=== PATIENT | female | born 1950 | race Caucasian/White ===

== ENCOUNTER 2016-05-12 11:06 | Outpatient (CLI) | payer MEDICARE, OTHER | END 2016-05-12 11:07 | disposition home or self-care (01) | DX: M81.0 Age-related osteoporosis without current pathological fracture (principal); D25.9 Leiomyoma of uterus, unspecified; N95.0 Postmenopausal bleeding ==

== ENCOUNTER 2016-05-12 11:11 | Outpatient (CLI) | payer MEDICARE, OTHER | END 2016-05-12 11:12 | disposition home or self-care (01) | DX: Z12.31 Encounter for screening mammogram for malignant neoplasm of breast (principal) ==

== ENCOUNTER 2016-05-12 11:12 | Outpatient (CLI) | payer MEDICARE, OTHER | END 2016-05-12 11:13 | disposition home or self-care (01) | DX: M81.0 Age-related osteoporosis without current pathological fracture (principal); N95.8 Other specified menopausal and perimenopausal disorders ==

== ENCOUNTER 2018-01-24 11:23 | Outpatient (CLI) | payer MEDICARE ==
--- NOTE | 2018-01-25 12:02 | Mammography Report ---
Reason: BILAT SCREENwTOMO Procedure Date: 01/24/2018 Accession Number: [id number] / [id number] Procedure: NILE - Screening Mammo w/Flavio CPT Code: FULL RESULT: EXAM: Screening Mammo w/Flavio DATE: 01/24/2018 11:55 AM CLINICAL HISTORY: 67 year-old nulliparous female with family history of breast cancer in an aunt in her 70s. TECHNIQUE: Bilateral CC and MLO views were obtained. COMPARISON: 05/12/2016, 04/01/2015, 08/12/2014, 02/04/2014. FINDINGS: The breasts demonstrate heterogeneously dense fibroglandular parenchyma bilaterally. Typically benign coarse calcifications are seen in the right breast. No suspicious masses, clustered microcalcifications, or regions of architectural distortion are identified. IMPRESSION: Benign findings RECOMMENDATION: Routine annual screening unless otherwise clinically indicated. BIRADS CATEGORY 2: Benign findings STANDARD QUALIFYING STATEMENTS: 1. This examination was not reviewed with the aid of Computer-Aided Detection (CAD). 2. A negative or benign imaging report should not delay biopsy if clinically suspicious findings are present. Consider surgical consultation if warrented. More than 5% of cancers are not identified by imaging. 3. Dense breasts may obscure an underlying neoplasm. 4. This examination was reviewed with the aid of 3D breast imaging (tomosynthesis).
== END 2018-01-24 11:24 | disposition home or self-care (01) ==
LOC: DI 11:23
PROVIDERS: ATTEND Physician Assistant
DX: Z12.31 Encounter for screening mammogram for malignant neoplasm of breast (principal); Z80.3 Family history of malignant neoplasm of breast
CPT/HCPCS: 77063; 77067

== ENCOUNTER 2019-01-29 09:10 | Outpatient (CLI) | payer MEDICARE ==
--- NOTE | 2019-01-29 10:55 | XRAY Report ---
Reason: PAIN IN LEFT KNEE AND RIGHT HIP Procedure Date: 01/29/2019 Accession Number: [id number] / [id number] Procedure: XRS - Knee 3 View LT CPT Code: FULL RESULT: EXAM: LEFT KNEE RADIOGRAPHY EXAM DATE: 01/29/2019 09:31 AM. CLINICAL HISTORY: Pain in left knee and right hip. COMPARISON: None. TECHNIQUE: 3 views. FINDINGS: Bones: Normal. No fractures or bone lesions. Joints: Mild joint space narrowing without definite marginal osteophytosis in the medial weightbearing compartment. No joint effusion. No subluxation. Soft Tissues: Normal. No soft tissue swelling. IMPRESSION: Overall minimal degenerative changes. RADIA
--- NOTE | 2019-01-29 11:22 | XRAY Report ---
Reason: PAIN IN RIGHT HIP JOINT Procedure Date: 01/29/2019 Accession Number: [id number] / [id number] Procedure: XRS - Hip w/Pelvis 2-3V RT CPT Code: FULL RESULT: EXAM: RIGHT HIP RADIOGRAPHY EXAM DATE: 01/29/2019 09:31 AM. CLINICAL HISTORY: Pain in right hip joint. COMPARISON: None. TECHNIQUE: 2 views. FINDINGS: Bones: Normal. No fractures or bone lesion. Joints: Moderate right hip joint space narrowing with subchondral sclerosis and marginal osteophytosis. No subluxation. Similar but less pronounced degenerative changes also seen in the left hip. Soft Tissues: Normal. No soft tissue swelling. IMPRESSION: Degenerative disease. RADIA
== END 2019-01-29 09:11 | disposition home or self-care (01) ==
LOC: DI.S 09:10
PROVIDERS: ATTEND Physician Assistant
DX: M16.0 Bilateral primary osteoarthritis of hip (principal); M17.12 Unilateral primary osteoarthritis, left knee

== ENCOUNTER 2020-03-23 13:38 | Outpatient (CLI) | payer MEDICARE ==
--- NOTE | 2020-03-23 16:45 | DEXA Report ---
PROCEDURE: Dexa Spine and/or Hip INDICATIONS: OSTEOPOROSIS TECHNIQUE: Dual energy x-ray absorptiometry (DXA) was performed on a Xquva System. Regions measur ed are the AP Spine, femoral neck, and if needed forearm. COMPARISON: None. FINDINGS: Lumbar Spine: Bone Mineral Density 0.861 g/cm/cm,T score -2.7, mild osteoporosis Left Hip: Bone Mineral Density 0.755 g/cm/cm,T score -2.0moderate osteopenia Left Femoral Neck: Bone Mineral Density 0.721 g/cm/cm, T score -2.3, severe osteopenia (T score greater or equal to -1.0: NORMAL) (T score from -1.1 to -2.4: OSTEOPENIA) (T score less than or equal to -2.5 to: OSTEOPOROSIS) Impression: Osteoporosis within the lumbar spine. Patients with diagnosis of osteoporosis or osteopenia should have regular bone mineral density assess ment. For those eligible for Medicare, routine testing is allowed once every 2 years. Testing frequ ency can be increased for patients who have rapidly progressing disease or for those who are receivin g medical therapy to restore bone mass. Reviewed by: Agatha Olivera MD on 03/23/2020 4:44 PM PST Approved by: Agatha Olivera MD on 03/23/2020 4:44 PM PST Station ID: [id number]
== END 2020-03-23 13:39 | disposition home or self-care (01) ==
LOC: DI 13:38
PROVIDERS: ATTEND Registered Nurse
DX: M81.0 Age-related osteoporosis without current pathological fracture (principal)

== ENCOUNTER 2020-05-31 09:54 | Outpatient (CLI) | payer MEDICARE ==
--- NOTE | 2020-06-01 12:46 | Mammography Report ---
BILATERAL DIGITAL SCREENING MAMMOGRAM 3D/2D: 05/31/2020 CLINICAL: Routine screening. Routine screening. Comparison is made to exams dated: 01/24/2018 mammogram, 05/12/2016 mammogram, 04/01/2015 mammogram, and 08/12/2014 mammogram - [facility]. The tissue of both breasts is predominantly fatty. There is a focal asymmetry in the left breast at 10 o'clock anterior depth measuing 7 mm. No other significant masses, calcifications, or other findings are seen in either breast. IMPRESSION: INCOMPLETE: NEEDS ADDITIONAL IMAGING EVALUATION The focal asymmetry in the left breast is indeterminate. Additional views with possible ultrasound a re recommended. This exam was interpreted at Station ID: [id number]. NOTE: For mammograms, a report in lay terms will be sent to the patient. Approximately 15% of breast malignancies will not be visualized mammographically. In the management of a palpable breast mass, a negative mammogram must not discourage biopsy of a clinically suspicious lesion. Electronically Signed By: Luis Tenorio M.D. jr/:05/31/2020 12:02:06 ACR BI-RADS Category 0: Incomplete 3340F PARENCHYMAL PATTERN: (F) - The breast(s) demonstrate(s) diffuse fatty replacement. BI-RADS CATEGORY: (0) - 0 Mammo and [place] [id number] Immediate follow-up LATERALITY: (B)
== END 2020-05-31 09:55 | disposition home or self-care (01) ==
LOC: DI.S 09:54
PROVIDERS: ATTEND Registered Nurse
DX: Z12.31 Encounter for screening mammogram for malignant neoplasm of breast (principal); N64.89 Other specified disorders of breast

== ENCOUNTER 2020-07-07 11:52 | Outpatient (CLI) | payer MEDICARE ==
--- NOTE | 2020-07-14 14:04 | Mammography Report ---
UNILATERAL LEFT DIGITAL DIAGNOSTIC MAMMOGRAM 3D/2D: 07/07/2020 CLINICAL: Patient returns today to evaluate a focal asymmetry in the left breast. Comparison is made to exams dated: 05/31/2020 mammogram, 01/24/2018 mammogram, 05/12/2016 mammogram, 1 06/02/2014 mammogram, 08/12/2014 mammogram, and 02/04/2014 mammogram - [facility]. T he tissue of left breast is predominantly fatty. There is a stable focal asymmetry in the left breast at 10 o'clock anterior depth. No other significant masses or calcifications are seen in the breast. IMPRESSION: INCOMPLETE: NEEDS ADDITIONAL IMAGING EVALUATION The stable focal asymmetry in the left breast is indeterminate. An ultrasound is recommended. This exam was interpreted at Station ID: [id number]. NOTE: For mammograms, a report in lay terms will be sent to the patient. Approximately 15% of breast malignancies will not be visualized mammographically. In the management of a palpable breast mass, a negative mammogram must not discourage biopsy of a clinically suspicious lesion. Electronically Signed By: Luis Tenorio M.D., jr/dakota:07/07/2020 14:45:16 ACR BI-RADS Category 0: Incomplete 3340F PARENCHYMAL PATTERN: (F) - The breast(s) demonstrate(s) diffuse fatty replacement. BI-RADS CATEGORY: (0) - 0 Ultrasound [id number] Immediate follow-up LATERALITY: (B)
--- NOTE | 2020-07-14 14:04 | Ultrasound Report ---
LIMITED ULTRASOUND OF LEFT BREAST: 07/07/2020 CLINICAL: Patient returns today to evaluate a focal asymmetry in the left breast. Comparison is made to exams dated: 05/31/2020 mammogram, 01/24/2018 mammogram, 05/12/2016 mammogram, mammogram, 04/01/2015 mammogram, and 02/04/2014 mammogram - [facility]. Color flow ultrasound of the left breast 3 o'clock and 12 o'clock regions was performed. Yan scale images of the real-time examination were reviewed. There is a benign cyst in the left breast at 8 o'clock anterior depth accounting for the mammographic asymmetry. IMPRESSION: BENIGN There is no sonographic evidence of malignancy. Return to annual mammogram screening schedule is recommended. This exam was interpreted at Station ID: [id number]. Electronically Signed By: Luis Tenorio M.D. jr/:07/14/2020 13:47:29 Ultrasound BI-RADS: 2 Benign BI-RADS CATEGORY: (2) - 2 Mammogram [id number] return to screening LATERALITY: (B)
== END 2020-07-07 11:53 | disposition home or self-care (01) ==
LOC: DI 11:52
PROVIDERS: ATTEND Registered Nurse
DX: R92.2 Inconclusive mammogram (principal); N60.02 Solitary cyst of left breast

== ENCOUNTER 2021-05-08 01:37 | Observation (INO) | payer MEDICARE ==
[2021-05-08] MEDS ORDERED: diltiaZEM INJ 5 MG/ML VIAL IVP STA (01:54)
[2021-05-08] MEDS ORDERED: SODIUM CHLORIDE 0.9% 1,000 ML IV STA (01:54)
[2021-05-08] MEDS ORDERED: diltiaZEM CD 120 MG CAPSULE PO STA (02:06)
--- NOTE | 2021-05-08 02:11 | ED Physician Documentation ---
History of Present Illness - Stated complaint Stated Complaint: HIGH/IRREGULAR HR/PALPATATIONS - Chief complaint Chief Complaint: Cardiac - History obtained from History obtained from: Patient - Additonal information Additional information: Patient comes to the emergency department with chief complaint of palpitations. She states that she went to bed feeling normal last night, but woke up just before coming and feeling as though she "had a hummingbird loose in her chest". Patient states she is known to have atrial fibs/flutter, and had her first episode this last summer while in [place]. She was seen at a hospital there and admitted for a brief observation stay. She states that at that time, her heart rate responded very well to medication and that she was discharged and ended up following up with a information systems security officer in [place]. She had an echo and was told that it looked like she had been in atrial fibs/flutter for "a long time", due to the fact that she had some atrial enlargement. She was placed on anticoagulation and diltiazem at that time. The patient denies chest pain or shortness of breath. She states she is otherwise completely healthy and is not on any medications for anything else. She walks every day and gardens on a regular basis. She denies lightheadedness or dizziness currently. She did take her diltiazem this evening as usual. No other complaints at this time. Review of Systems Ten Systems: 10 systems reviewed and negative Constitutional: reports: Reviewed and negative Eyes: reports: Reviewed and negative Ears: reports: Reviewed and negative Nose: reports: Reviewed and negative Throat: reports: Reviewed and negative Cardiac: reports: Reviewed and negative Respiratory: reports: Reviewed and negative GI: reports: Reviewed and negative : reports: Reviewed and negative Skin: reports: Reviewed and negative Musculoskeletal: reports: Reviewed and negative Neurologic: reports: Reviewed and negative Psychiatric: reports: Reviewed and negative Endocrine: reports: Reviewed and negative Immunocompromised: reports: Reviewed and negative PD PAST MEDICAL HISTORY - Past Medical History Past Medical History: Yes Cardiovascular: Atrial fibrillation Respiratory: None Endocrine/Autoimmune: None GI: None : None HEENT: None Psych: None Musculoskeletal: Chronic back pain Derm: None - Past Surgical History Past Surgical History: Yes HEENT: Cataracts - Present Medications Home Medications: Ambulatory Orders Medication Instructions Recorded Confirmed Apixaban [Eliquis] 5 mg PO BID 05/08/21 05/08/21 Chlorthalidone 25 mg PO DAILY 05/08/21 05/08/21 dilTIAZem HCL [Diltiazem 24Hr ER 120 mg PO DAILY 05/08/21 05/08/21 (Xr)] - Allergies Allergies/Adverse Reactions: Allergies Allergy/AdvReac Type Severity Reaction Status Date / Time Penicillins Allergy Severe Rash Verified 04/17/13 09:00 amoxicillin Allergy Unknown Verified 05/08/21 01:50 - Social History Does the pt smoke?: No Smoking Status: Never smoker Does the pt drink ETOH?: Yes ETOH Use: Wine Does the pt have substance abuse?: No - Immunizations Immunizations are current?: Yes - POLST Patient has POLST: No PD ED PE NORMAL - Vitals Vital signs reviewed: Yes - General General: Alert and oriented X 3, No acute distress, Well developed/nourished, Other (The patient is well-appearing and converses without difficulty.) - HEENT HEENT: Atraumatic, PERRL, EOMI, Moist mucous membranes - Neck Neck: Supple, no meningeal sign - Cardiac Cardiac: No murmur, Other (Irregular rhythm and rate, markedly tachycardic) - Respiratory Respiratory: No respiratory distress, Clear bilaterally - Abdomen Abdomen: Soft, Non tender, Non distended - Derm Derm: Normal color, Warm and dry, No rash - Extremities Extremities: No deformity, No edema, No calf tenderness / cord - Neuro Neuro: Alert and oriented X 3, behavioral geneticist 2-12 intact, Normal speech, Other (Grossly intact) - Psych Psych: Normal mood, Normal affect Results - Vitals Vitals: Vital Signs - 24 hr 05/08/21 05/08/21 05/08/21 01:40 02:00 02:05 Temperature 36.1 C L Heart Rate 145 H 148 H 78 Respiratory 13 20 20 Rate Blood Pressure 178/121 H 147/118 H 140/78 H O2 Saturation 98 98 99 05/08/21 05/08/21 02:10 02:30 Temperature Heart Rate 87 67 Respiratory 16 13 Rate Blood Pressure 149/89 H 157/90 H O2 Saturation 97 99 Oxygen O2 Source Room air - EKG (time done) 0144 Rate: Rate (enter#) (136) Rhythm: Atrial fibrillation [place]: Normal QRS: LVH Ischemia: ST depression, Non specific changes Compare to prior EKG: Old EKG unavailable Computer interpretation: Agree with computer - Labs Labs: Laboratory Tests 05/08/21 05/08/21 05/08/21 01:57 01:57 01:57 WBC 8.1 RBC 4.40 Hgb 14.0 Hct 38.4 MCV 87.3 MCH 31.8 H MCHC 36.5 H RDW 12.1 Plt Count 349 MPV 9.9 Neut # (Auto) 4.5 Lymph # (Auto) 2.4 [place] # (Auto) 0.9 Eos # (Auto) 0.2 Baso # (Auto) 0.1 Absolute Nucleated RBC 0.00 Nucleated RBC % 0.0 Sodium 130 L Potassium 2.6 L Chloride 89 L Carbon Dioxide 27 Anion Gap 14.0 H BUN 26 H Creatinine 0.7 Estimated GFR (MDRD) 83 L Glucose 99 Calcium 9.7 Total Bilirubin 1.0 AST 29 ALT 32 Alkaline Phosphatase 102 Troponin I High Sens 15.7 H* Total Protein 7.9 Albumin 4.9 Globulin 3.0 Albumin/Globulin Ratio 1.6 Lipase 56 H PD MEDICAL DECISION MAKING - ED course Complexity details: reviewed results, re-evaluated patient, considered differential, d/w patient ED course: The patient was very well-appearing, but her heart rate was ranging between the 130s and 160s. IV was placed and patient was started on IV fluid and given an immediate bolus of Cardizem 25 mg IV. She responded within less than a minute with heart rate dropping to the 80s, though the patient was still in atrial fibrillation. Patient reported feeling much better with the heart rate drop. The patient was found to have significant hypokalemia at 2.6, and I suspected this was the result of her taking chlorthalidone. The patient had eventually converted back to normal sinus rhythm after the A. fib, but was still having frequent PACs. She was given 40 mEq of potassium orally for her hypokalemia. I felt that she should have more aggressive potassium replacement and since she would need frequent repeat potassium levels, I felt she should be admitted for observation. I spoke with Dr. Espino, who agreed to meet patient to her service. - Critical Care Time(min): 30 Comments: Critical care time was necessary, secondary to hypermobility of imminent and life-threatening decline, secondary to extreme tachycardia in the setting of atrial fibrillation with rapid ventricular response, complicated by severe hypokalemia. Time Includes: Direct patient care, Review records, Reassess patient, Document care, Coordinate care, Medical consult, See progress note Data interpretation: Labs, Pulse ox, Cardiac output, See progress note Departure - Departure Disposition: ED Place in Observation Clinical Impression: Hypokalemia, Atrial fibrillation with RVR Condition: Serious Discharge Date/Time: 05/08/21 03:55
[2021-05-08 02:12] LABS: BASOPHILS # (AUTO) 0.1 10^3/uL (0.0-0.1); BASOPHILS % (AUTO) 0.7 %; EOSINOPHILS # (AUTO) 0.2 10^3/uL (0.0-0.7); EOSINOPHILS % (AUTO) 1.9 %; HCT - HEMATOCRIT 38.4 % (37.0-47.0); LYMPHOCYTES # (AUTO) 2.4 10^3/uL (1.5-3.5); LYMPHOCYTES % (AUTO) 30.1 %; MEAN CORPUSCULAR HEMOGLOBIN 31.8 pg (27.0-31.0); MEAN CORPUSCULAR HGB CONC 36.5 g/dL (32.0-36.0); MEAN CORPUSCULAR VOLUME 87.3 fL (81.0-99.0); MEAN PLATELET VOLUME 9.9 fL (7.9-10.8); MONOCYTES # (AUTO) 0.9 10^3/uL (0.0-1.0); MONOCYTES % (AUTO) 11.6 %; NEUTROPHILS # (AUTO) 4.5 10^3/uL (1.5-6.6); NEUTROPHILS % (AUTO) 55.6 %; PLT - PLATELET COUNT 349 10^3/uL (130-450); RED CELL DISTRIBUTION WIDTH 12.1 % (12.0-15.0); WHITE BLOOD COUNT 8.1 x10^3/uL (4.8-10.8)
[2021-05-08 02:25] LABS: ALBUMIN 4.9 g/dL (3.2-5.5); ALBUMIN/GLOBULIN RATIO 1.6 (1.0-2.2); CALCIUM 9.7 mg/dL (8.5-10.3); CREATININE 0.7 mg/dL (0.4-1.0); POTASSIUM 2.6 mmol/L (3.5-5.0); TOTAL PROTEIN 7.9 g/dL (6.7-8.2)
[2021-05-08] MEDS ORDERED: POTASSIUM CHLORIDE 20 MEQ TABLET PO STA (02:36)
[2021-05-08] MEDS ORDERED: ONDANSETRON 4 MG/2 ML VIAL IVP PRN (02:56)
[2021-05-08] MEDS ORDERED: oxyCODONE 5 MG TABLET PO PRN (02:56)
[2021-05-08] MEDS ORDERED: ACETAMINOPHEN 325 MG TABLET PO PRN (02:56)
[2021-05-08] MEDS ORDERED: SODIUM CHLORIDE FLUSH 0.9% 10 ML SYRINGE IVP PRN (02:56)
[2021-05-08] MEDS ORDERED: ONDANSETRON ODT 4 MG TABLET TL PRN (02:56)
--- NOTE | 2021-05-08 03:02 | HISTORY & PHYSICAL EXAMINATION ---
Chief Complaint - Chief Complaint Chief Complaint: palpitations History of Present Illness - Admitted From Admitted From:: home - History Obtained From Records Reviewed: [facility] History obtained from: Dr. Calixto Exam Limitations: none - History of Present Illness HPI Comment/Other: She has a history of atrial fibrillation for which she was hospitalized for [place] the past [place]. With that hospitalization she was put on rate control and anticoagulation and was told that she had probably been in atrial fibrillati on for quite some time based on echocardiogram findings. She is compliant with her medications. She is on chlorthalidone for high blood pressure. Her Equities Analyst from [facility], Dr Zamudio, wants her systolic to be below 120. She did have her K checked by her PCP Alma Amaya with her last visit and it was low. She was instructed to eat potassium rich food to take care of that. She now presents with palpitations. She was asleep in bed when she was awoken by sensation of the palpitations. She was found to be in atrial fibrillation with rapid ventricular response at a rate of 145. No chest pain, shortness of breath, edema. She was afebrile, normotensive. She was given 1 dose of diltiazem IV and slow down and converted to sinus rhythm. However potassium was 2.6, sodium is 130. Troponin 15.7. She is now placed in observation for potassium of less than 3 mEq/L with findings of arrhythmia/cardiac conduction disturbance. History - Past Medical History Cardiovascular: reports: Atrial fibrillation Respiratory: reports: None Neuro: reports: None Endocrine/Autoimmune: reports: None GI: reports: None SLIP LASTER: reports: Other (abormal mammo, ) : reports: None HEENT: reports: None Psych: reports: None Musculoskeletal: reports: Osteoporosis, Chronic back pain Derm: reports: None MRSA Hx?: No - Past Surgical History HEENT: reports: Cataracts - Family & Social History Family History Comment/Other: Mom age 87 of old age. Dad age 70 of emphysema from smoking. 1 brother healthy. many cousins on both sides w afib. no children Living arrangement: At home Living Situation: With spouse/s.o. Social [place] and she and her own their own home. Nonsmoker. Wine was 1 glass daily until a few months ago and is now one glass once every 2 weeks. No recreational substance abuse. - Substance History Use: Uses substance without health or social issues: Alcohol Abuse: Recurrent use of substance despite neg consequences: NONE Dependence: Experiences withdrawal or developed tolerances: NONE - POLST Patient has POLST: No POLST Status: Full Code Meds/Allgy - Home Medications Home Medications: Ambulatory Orders Medication Instructions Recorded Confirmed Apixaban [Eliquis] 5 mg PO BID 05/08/21 05/08/21 Chlorthalidone 25 mg PO DAILY 05/08/21 05/08/21 dilTIAZem HCL [Diltiazem 24Hr ER 120 mg PO DAILY 05/08/21 05/08/21 (Xr)] - Allergies Allergies/Adverse Reactions: Allergies Allergy/AdvReac Type Severity Reaction Status Date / Time Penicillins Allergy Severe Rash Verified 04/17/13 09:00 amoxicillin Allergy Unknown Verified 05/08/21 01:50 Review of Systems - Constitutional Constitutional: denies: Fatigue, Fever, Chills, Malaise, Weakness, Poor appetite - Eyes Eyes: denies: Pain, Irritation, Amaurosis, Blurred vision, Vision loss - Ears, Nose & Throat Ears, Nose & Throat: denies: Hearing loss, Hearing aids, Postnasal drainage, Sore throat, Hoarseness - Cardiovascular Cariovascular: reports: Irregular heart rate, Palpitations. denies: Chest pain, Edema, Lightheadedness, Syncope, Exertional dyspnea, Decr. exercise tolerance - Respiratory Respiratory: denies: Cough, Sputum production, Wheezing, Snoring, SOB at rest, SOB with exertion - Gastrointestinal Gastrointestinal: denies: Abdominal pain, Abdominal distention, Constipation, Diarrhea, Change in bowel habits - Genitourinary Genitourinary: denies: Dysuria, Frequency, Urgency, Hematuria - Musculoskeletal Musculoskeletal: denies: Muscle pain, Muscle aches, Joint pain - Integumentary Integumentary: denies: Rash, Nail changes - Neurological Neurological: denies: General weakness, Focal weakness, Headache, Dizziness, Memory problems, Pre-existing deficit - Psychiatric Psychiatric: denies: Depression, Anxiety, Suicidal - Endocrine Endocrine: denies: Polyuria, Polydypsia - Hematologic/Lymphatic Hematologic/Lymphatic: denies: Anemia, Bruising, Petechiae Prior Level of Functionality: complete independence w ADLs. 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 Exam - Vital Signs Reviewed Vital Signs: Yes Vital Signs: Vital Signs x48h Temp Pulse Resp BP Pulse Ox 05/08/21 02:30 67 13 157/90 H 99 05/08/21 02:10 87 16 149/89 H 97 05/08/21 02:05 78 20 140/78 H 99 05/08/21 02:00 148 H 20 147/118 H 98 05/08/21 01:40 36.1 C L 145 H 13 178/121 H 98 - Physical Exam General Appearance: positive: No acute distress, Alert, Other (thin white female, comfortable, lucid, normal speech) Eyes Bilateral: positive: PERRL, EOMI ENT: positive: Pharynx nml, No signs of dehydration Neck: positive: No JVD. negative: Stiff neck Respiratory: positive: No respiratory distress. negative: Wheezes, Rales, Rhonchi Cardiovascular: positive: Regular rate & rhythm. negative: Systolic murmur, Gallop/S4, Friction rub Peripheral Pulses: positive: 1+ Abdomen: positive: Non-tender, No organomegaly, Nml bowel sounds, No distention Skin: positive: Warm, Dry Extremities: positive: Full ROM, No pedal edema Neurologic/Psychiatric: positive: Oriented x3, CN's nml (2-12), Motor nml Conclusion/Plan - Problem List (1) Hypokalemia Conclusion/Plan: Milliman criteria states the patient can be placed in observation for potassium less than 2.5 in and of itself, or potassium less than 3 associated with arrhythmia or cardiac conduction disturbance. She meets criteria for the latter. Troponin is essentially negative. She has had an excellent cardiac work-up in the outpatient setting and already has established cardiac care. Plan: Observation status Potassium supplementation IV at 10 mEq an hour to get above 3.0. At that point she will be transition to oral and discharged to home. Once home, she will receive a few days of oral K by Rx and will followup with her PCP, Alma Amaya. I let her know that eating 7.5 bananas a day will give you the recommended dose of 3500 mg of K. One potato is 515-900 mg depending on the size, watermelon is 640 mg, 1 cup of spinach is 558 mg. (2) Atrial fibrillation with RVR Conclusion/Plan: On presentation. Now resolved and in sinus rhythm. Patient has a known, documented history. She will be resumed on her Cardizem CD and her Eliquis. (3) Hypertension Conclusion/Plan: we discussed options: 1. continuing chlorthalidone and adding oral potassium 2. Increasing the diltiazem since her BP can take it 3. going with a new BP med. She opted for #2. Qualifiers: Hypertension type: primary hypertension Qualified Code(s): I10 - Essential (primary) hypertension - Lab Results Lab results reviewed: Yes Jaciel Bones: 05/08/21 01:57 05/08/21 01:57 - Diagnostic Imaging Results Diagnostic Imaging Results Comments: no acute lung disease in the chest - EKG Results EKG Interpreted Independently: No EKG Comparison: No prior EKG Core Measures - Anticipated LOS I expect patient to be DC'd or transferred within 96 hours.: Yes - DVT/VTE - Prophylaxis VTE/DVT Device ordered at admit?: Yes
[2021-05-08] MEDS: POTASSIUM CHLOR 10 MEQ/100 ML 10 MEQ/100 ML BAG IV SCH ×5 (03:53→11:10)
[2021-05-08 04:44] LABS: B. PARAPERTUSSIS- RESP PCR PAN NOT DETECTED; B. PERTUSSIS- RESP PCR PANEL NOT DETECTED; C. PNEUMONIAE- RESP PCR PANEL NOT DETECTED; CORONAVIRUS 229E-RESP PCR NOT DETECTED; CORONAVIRUS HKU1-RESP PCR NOT DETECTED; CORONAVIRUS NL63-RESP PCR NOT DETECTED; CORONAVIRUS OC43-RESP PCR NOT DETECTED; HUMAN METAPNEUMOVIRUS NOT DETECTED; INFLUENZA A- RESP PCR PANEL NOT DETECTED; INFLUENZA B - RESP PCR PANEL NOT DETECTED; M. PNEUMONIAE- RESP PCR PANEL NOT DETECTED; PARAINFLUENZA VIRUS 1 NOT DETECTED; PARAINFLUENZA VIRUS 2 NOT DETECTED; PARAINFLUENZA VIRUS 3 NOT DETECTED; PARAINFLUENZA VIRUS 4 NOT DETECTED; RHINOVIRUS/ENTEROVIRUS NOT DETECTED; RSV- RESP PCR PANEL NOT DETECTED; SARS-CoV-2 -RESP PCR PANEL NOT DETECTED
--- NOTE | 2021-05-08 07:47 | Discharge Plan ---
Discharge Plan Problem Reviewed?: Yes Diet: Regular Activity Restrictions: Activity as Tolerated Shower Restrictions: No Driving Restrictions: No No Smoking: If you smoke, Please STOP! Call for help. Disposition: Home, Self Care Condition: Stable Prescriptions: diltiaZEM CD [Cardizem Cd] 180 mg PO DAILY #30 cap Potassium Chloride 20 meq PO RTDAILY #10 tablet Health Concerns: You were placed in observation because your potassium was so low that it induced an episode of atrial fibrillation with a rapid heart rate. It woke you up from your sleep. You had a history of low potassium and your primary care provider asked you to eat a potassium rich diet. A potassium rich diet would be 7-1/2 bananas a day to give you enough potassium as 1 pill. Beats have 518 mg, spinach has 558 mg, watermelon has 640 mg, and potatoes have 610 mg. A daily requirement of potassium is about 4700 mg. It depends on what medicines you are on, and how your kidneys are functioning. You converted to a regular heart rate with a dose of diltiazem in the emergency room. And we placed you in observation to give you IV potassium supplementation since you were 2.6. You are now above 3.0 and we will be sending you home on potassium 20 mEq a day. Only for 5 days. We have stopped the chlorthalidone the causes low potassium. In an effort to reach the goal that your pewter finisher to set for you with a systolic blood pressure of less than 120, we have increased your diltiazem from 120 mg a day to 180 mg a day. We also noted that your troponin was elevated which can occur from stress on the heart due to high heart rate. We spoke with the pewter finisher on-call at the [facility] and they felt it was reasonable to send you home and free to follow-up with Dr. Bajwa for an outpatient stress test. Plan of Treatment: Please see your primary care provider in follow-up in the next week. They will need to check your potassium. You will be sent home on 1 tablet a day that can be dissolved in liquid. Take it for 5 days. Your primary care provider will also need to check your blood pressure since we have increased your Cardizem. Please contact Dr. Bajwa's office tomorrow to schedule an appointment for follow-up so that you can have a stress test done. Assessment: Patient understands plan and will follow through Additional Instructions or Follow Up instructions: Please return to the emergency department if you develop any chest pain, difficulty breathing, or palpitations Follow-up with: MIR KENDALL ARNP [Primary Care Provider] - Wes Bajwa MD [Provider Admit Priv/Credential] -
--- NOTE | 2021-05-08 08:14 | XRAY Report ---
PROCEDURE: Chest 1 View X-Ray INDICATIONS: Chest pain TECHNIQUE: One view of the chest was acquired. COMPARISON: None FINDINGS: Surgical changes and devices: None. Lungs and pleura: No pleural effusions or pneumothorax. Lungs are clear. Mediastinum: Mediastinal contours appear normal. Heart size is normal. Bones and chest wall: No suspicious bony lesions. Overlying soft tissues appear unremarkable. IMPRESSION: Portable chest within normal limits for age. Note: No significant discrepancy from the preliminary report. Reviewed by: Ti Mccloud MD on 05/08/2021 7:13 AM [facility] [[email or web address]] Approved by: Ti Mccloud MD on 05/08/2021 7:13 AM [facility] [[email or web address]] Station ID: [id number]
--- NOTE | 2021-05-08 08:36 | PHARMACY PROGRESS NOTE ---
- Best Possible Medication History Admit Date and Time: 05/08/21 0256 Processed by: Nursing Medication History completed: Yes Patient Interview: Completed Secondary Source(s): Pharmacy records, Insurance records As the person ultimately responsible for medication therapy, providers are able to order a medication from an existing home medication list in [facility] via the "Reconcile Routine" prior to Confirmation of that medication by service support representative. Such practice is discouraged except when the physician, in their clinical judgment, deems that a medical need exists for a medication without regard to previous use.
[2021-05-08] MEDS ORDERED: SODIUM CHLORIDE FLUSH 0.9% 10 ML SYRINGE IVP SCH (09:00)
[2021-05-08] MEDS ORDERED: diltiaZEM CD 120 MG CAPSULE PO SCH (09:00)
[2021-05-08] MEDS ORDERED: diltiaZEM CD 180 MG CAPSULE PO SCH (09:00)
[2021-05-08] MEDS ORDERED: APIXABAN 5 MG TABLET PO SCH (09:00)
[2021-05-08] MEDS ORDERED: ASPIRIN CHEW 81 MG TABLET PO STA (09:22)
[2021-05-08 09:48] VITALS: BP 146/75
[2021-05-08] MEDS ORDERED: ENOXAPARIN 60 MG/0.6 ML SYRINGE SUBQ SCH (10:00)
[2021-05-08 11:04] LABS: BASOPHILS % (AUTO) 0.7 %; EOSINOPHILS # (AUTO) 0.1 10^3/uL (0.0-0.7); EOSINOPHILS % (AUTO) 1.1 %; HCT - HEMATOCRIT 35.5 % (37.0-47.0); HGB - HEMOGLOBIN 13.1 g/dL (12.0-16.0); LYMPHOCYTES # (AUTO) 1.2 10^3/uL (1.5-3.5); MEAN CORPUSCULAR HEMOGLOBIN 32.3 pg (27.0-31.0); MEAN CORPUSCULAR HGB CONC 36.9 g/dL (32.0-36.0); MEAN CORPUSCULAR VOLUME 87.7 fL (81.0-99.0); MEAN PLATELET VOLUME 9.4 fL (7.9-10.8); MONOCYTES # (AUTO) 0.7 10^3/uL (0.0-1.0); MONOCYTES % (AUTO) 11.9 %; NEUTROPHILS # (AUTO) 3.6 10^3/uL (1.5-6.6); NEUTROPHILS % (AUTO) 64.1 %; PLT - PLATELET COUNT 341 10^3/uL (130-450); RED BLOOD COUNT 4.05 10^6/uL (4.20-5.40); RED CELL DISTRIBUTION WIDTH 12.2 % (12.0-15.0); WHITE BLOOD COUNT 5.6 x10^3/uL (4.8-10.8)
[2021-05-08 11:13] LABS: CALCIUM 9.3 mg/dL (8.5-10.3); CREATININE 0.7 mg/dL (0.4-1.0); POTASSIUM 3.5 mmol/L (3.5-5.0)
--- NOTE | 2021-05-08 21:04 | DISCHARGE SUMMARY ---
"Discharge Summary Admit Date: 05/08/21 Discharge Date: 05/08/21 Discharging Provider: Tamara Espino MD Primary Care Provider: JUANITO Carolina Code Status: Attempt Resuscitation Condition at Discharge: Stable Discharge Disposition: 01 Home, Self Care - DIAGNOSES Discharge Diagnoses with Status of Each Condition: 1. Hypokalemia 2. Atrial fibrillation with RVR 3. Hypertension 4. Medication side effect - HPI History of Present Illness: She has a history of atrial fibrillation for which she was [place] the [place]. With that hospitalization she was put on rate control and anticoagulation and was told that she had probably been in atrial fibrillation for quite some time based on echocardiogram findings. She is compliant with her medications. She is on chlorthalidone for high blood pressure. Her [employer] Principal from [facility], Dr Zamudio, wants her systolic to be below 120. She did have her K checked by her PCP Alma Amaya with her last visit and it was low. She was instructed to eat potassium rich food to take care of that. She now presents with palpitations. She was asleep in bed when she was awoken by sensation of the palpitations. She was found to be in atrial fibrillation with rapid ventricular response at a rate of 145. No chest pain, shortness of breath, edema. She was afebrile, normotensive. She was given 1 dose of diltiazem IV and slow down and converted to sinus rhythm. However potassium was 2.6, sodium is 130. Troponin 15.7. She is now placed in observation for potassium of less than 3 mEq/L with findings of arrhythmia/cardiac conduction disturbance. 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 And then given an oral dose. Potassium was 3.5 on recheck. She explained that her occupational therapy co director is started her on chlorthalidone to get her systolic below 130. We discussed options to achieve that goal without the chlorthalidone. She opted to increase her current Cardizem dose. She will be sent home on 5 days of p.o. potassium. She will need to see her primary care provider or occupational therapy co director in follow-up to get a BMP, and a check of her heart rate and blood pressure on the new Cardizem dose. Troponins were elevated on second set. The daytime hospitalist was able to speak to the occupational therapy co director and will dictate a separate addendum with his conversation about the occupational therapy co director instruction. At discharge temperature was 36.5. Pulse was 69 and sinus rhythm. Blood pressure 146/75. Respirations 16. 99% on room air. She is 5 foot 9 inches tall and was 59.5 kg. An alert, oriented white female who looks stated age. Neck is supple, no JVD Lungs are clear to auscultation and percussion without any increased respiratory effort Regular rate and rhythm Abdomen is soft and nontender with normal bowel sounds and no masses Extremities without edema Speech is lucid, she is oriented to person place and time, follows all commands, and is ambulating without assistance Discharged in stable condition to follow-up with primary care provider and occupational therapy co director. - ALLERGIES Allergies/Adverse Reactions: Allergies Allergy/AdvReac Type Severity Reaction Status Date / Time Penicillins Allergy Severe Rash Verified 04/17/13 09:00 amoxicillin Allergy Unknown Verified 05/08/21 01:50 - MEDICATIONS Home Medications: Ambulatory Orders Medication Instructions Recorded Confirmed Apixaban [Eliquis] 5 mg PO BID 05/08/21 05/08/21 Potassium Chloride 20 meq PO RTDAILY #10 tablet 05/08/21 diltiaZEM CD [Cardizem Cd] 180 mg PO DAILY #30 cap 05/08/21 - LABS Result Diagrams: 05/08/21 10:55 05/08/21 10:55"
== END 2021-05-08 15:00 | disposition home or self-care (01) ==
LOC: ED 01:37 → MS2 02:56
PROVIDERS: ADMIT Specialist; ATTEND Internal Medicine
DX: E87.6 Hypokalemia (principal); I48.91 Unspecified atrial fibrillation; I10 Essential (primary) hypertension; Z79.01 Long term (current) use of anticoagulants; T50.2X5A Adverse effect of carbonic-anhydrase inhibitors, benzothiadiazides and other diuretics, initial encounter; Z20.822 Contact with and (suspected) exposure to COVID-19
CPT/HCPCS: 36415; 71045; 80048; 80053; 83690; 83735; 83880; 84132; 84443; 84484; 85025; 87631; 93005; 96361; 96365; 96366; 96372; 96375; 99285; 99291; A9270; G0378; J1650; 0202U

== ENCOUNTER 2021-05-18 11:22 | Outpatient (CLI) | payer MEDICARE ==
--- NOTE | 2021-05-18 13:27 | XRAY Report ---
PROCEDURE: Hip w/Pelvis 2-3V RT INDICATIONS: PAIN IN RT HIP TECHNIQUE: AP pelvis with lateral view(s) of the right hip(s). COMPARISON: Right hip x-rays 01/29/2019. FINDINGS: Bones: No fractures or dislocations. Pelvic ring appears intact. No suspicious bony lesions. Moder ate to severe right hip joint space narrowing, progressed compared to 2019. Possible cam deformity of the right femoral neck. Mild to moderate left hip joint space narrowing. Soft tissues: The visualized bowel gas pattern is normal. No suspicious soft tissue calcifications. 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 Possible cam deformity. Progressed compared to 2019. Reviewed by: Mateo Lau MD on 05/18/2021 1:26 PM PST Approved by: Mateo Lau MD on 05/18/2021 1:26 PM PST Station ID: [id number]
[2021-05-18 16:54] LABS: CALCIUM 9.4 mg/dL (8.5-10.3); CREATININE 0.8 mg/dL (0.4-1.0); POTASSIUM 3.9 mmol/L (3.5-5.0)
== END 2021-05-18 11:23 | disposition home or self-care (01) ==
LOC: DI.S 11:22
PROVIDERS: ATTEND Nurse Practitioner Family
DX: M16.11 Unilateral primary osteoarthritis, right hip (principal); E87.6 Hypokalemia; M81.0 Age-related osteoporosis without current pathological fracture
CPT/HCPCS: 36415; 80048; 82306

== ENCOUNTER 2021-07-11 00:55 | Emergency (ER) | payer MEDICARE ==
[2021-07-11 01:20] LABS: BASOPHILS # (AUTO) 0.1 10^3/uL (0.0-0.1); BASOPHILS % (AUTO) 0.8 %; EOSINOPHILS # (AUTO) 0.1 10^3/uL (0.0-0.7); EOSINOPHILS % (AUTO) 1.5 %; HCT - HEMATOCRIT 42.9 % (37.0-47.0); HGB - HEMOGLOBIN 15.1 g/dL (12.0-16.0); LYMPHOCYTES # (AUTO) 2.7 10^3/uL (1.5-3.5); LYMPHOCYTES % (AUTO) 34.6 %; MEAN CORPUSCULAR HEMOGLOBIN 31.4 pg (27.0-31.0); MEAN CORPUSCULAR HGB CONC 35.2 g/dL (32.0-36.0); MEAN CORPUSCULAR VOLUME 89.2 fL (81.0-99.0); MEAN PLATELET VOLUME 9.7 fL (7.9-10.8); MONOCYTES # (AUTO) 0.7 10^3/uL (0.0-1.0); MONOCYTES % (AUTO) 8.5 %; NEUTROPHILS # (AUTO) 4.2 10^3/uL (1.5-6.6); NEUTROPHILS % (AUTO) 54.5 %; PLT - PLATELET COUNT 337 10^3/uL (130-450); RED BLOOD COUNT 4.81 10^6/uL (4.20-5.40); RED CELL DISTRIBUTION WIDTH 12.4 % (12.0-15.0); WHITE BLOOD COUNT 7.8 x10^3/uL (4.8-10.8)
--- NOTE | 2021-07-11 01:20 | ED Physician Documentation ---
History of Present Illness - Stated complaint Stated Complaint: RAPID HEART RATE - Chief complaint Chief Complaint: Cardiac - History obtained from History obtained from: Patient - Additonal information Additional information: Patient is 70-year-old female presenting to the emergency department with chief complaint of rapid heart rate. Reports woke at approximately 1130 with the sensation of "hummingbird's in my chest". Has had similar sensations in the past associated with episodes of atrial fibrillation. Known history of A. fib for which she takes Cardizem and Eliquis. Last dose Eliquis was earlier this evening. Last p.o. intake was earlier this evening. Also reports history of chronic Hypokalemia and states that she did take some fruit orally in order to try to replete her potassium prior to arrival. Otherwise denies for any lightheadedness, dizziness, chest pain, shortness of breath, abdominal pain, nausea, vomiting, diarrhea, constipation. 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 HEENT: None Psych: None Musculoskeletal: Osteoarthritis, Osteoporosis, Chronic back pain Derm: None - Past Surgical History Past Surgical History: Yes HEENT: Cataracts - Present Medications Home Medications: Ambulatory Orders Medication Instructions Recorded Confirmed Apixaban [Eliquis] 5 mg PO BID 05/08/21 07/11/21 Potassium Chloride 20 meq PO RTDAILY #10 tablet 05/08/21 07/11/21 diltiaZEM CD [Cardizem Cd] 180 mg PO DAILY #30 cap 05/08/21 07/11/21 - Allergies Allergies/Adverse Reactions: Allergies Allergy/AdvReac Type Severity Reaction Status Date / Time Penicillins Allergy Severe Rash Verified 07/11/21 01:10 amoxicillin Allergy Unknown Verified 07/11/21 01:10 - Social History Does the pt smoke?: No Smoking Status: Never smoker Does the pt drink ETOH?: Yes Does the pt have substance abuse?: No - Immunizations Immunizations are current?: Yes - POLST Patient has POLST: No POLST Status: Full Code PD ED PE NORMAL - Vitals Vital signs reviewed: Yes - General General: Alert and oriented X 3 - HEENT HEENT: Atraumatic - Neck Neck: Supple, no meningeal sign - Cardiac Cardiac: Other (Tachycardic irregularly irregular rhythm) - Respiratory Respiratory: No respiratory distress, Clear bilaterally - Abdomen Abdomen: Normal bowel sounds, Soft - Female Female : Deferred - Rectal Rectal: Deferred - Derm Derm: Normal color Results - Vitals Vitals: Vital Signs - 24 hr 07/11/21 07/11/21 07/11/21 01:01 01:25 01:26 Temperature 36.9 C Heart Rate 157 H 121 H 115 H Respiratory 19 19 15 Rate Blood Pressure 175/115 H 159/138 H 155/91 H O2 Saturation 98 98 97 07/11/21 07/11/21 07/11/21 01:31 01:36 01:43 Temperature Heart Rate 77 75 74 Respiratory 17 17 17 Rate Blood Pressure 157/87 H 149/86 H 148/80 H O2 Saturation 98 98 98 Oxygen O2 Source Room air - EKG (time done) 0104 Rate: Rate (enter#) (152) Rhythm: Atrial fibrillation [place]: Normal Intervals: QRS normal. No: Prolonged QT QRS: Normal Ischemia: Normal ST segments, Non specific changes Compare to prior EKG: Unchanged from prior EKG Computer interpretation: Agree with computer 0143 Rate: Rate (enter#) (76) Rhythm: NSR [place]: Normal Intervals: Normal [place], QRS normal. No: Prolonged QT QRS: Normal Ischemia: Normal ST segments Compare to prior EKG: Changed from prior EKG (Sinus rhythm has replaced atrial fibrillation), Other - Labs Labs: Laboratory Tests 07/11/21 07/11/21 01:10 01:10 WBC 7.8 RBC 4.81 Hgb 15.1 Hct 42.9 MCV 89.2 MCH 31.4 H MCHC 35.2 RDW 12.4 Plt Count 337 MPV 9.7 Neut # (Auto) 4.2 Lymph # (Auto) 2.7 [place] # (Auto) 0.7 Eos # (Auto) 0.1 Baso # (Auto) 0.1 Absolute Nucleated RBC 0.00 Nucleated RBC % 0.0 Sodium 137 Potassium 3.8 Chloride 96 L Carbon Dioxide 29 Anion Gap 12.0 BUN 22 H Creatinine 0.8 Estimated GFR (MDRD) 71 L Glucose 118 H Calcium 10.0 Total Bilirubin 0.8 AST 38 ALT 37 Alkaline Phosphatase 112 Total Protein 8.4 H Albumin 4.8 Globulin 3.6 Albumin/Globulin Ratio 1.3 Lipase 48 PD MEDICAL DECISION MAKING - ED course Complexity details: reviewed results, d/w patient ED course: Patient is a 70-year-old female presenting to the emergency department with rapid heart rate in setting of known history of atrial fibrillation. Known history of A. fib, currently takes Cardizem and Eliquis at home. Also no history of recurrent episodes hypokalemia. She reports that she takes potassium rich foods at home in order to treat this and is no longer on an oral potassium supplement. Initial EKG on arrival to the emergency department demonstrated A. fib with rapid ventricular response. Comprehensive labs obtained demonstrated normal electrolytes. Minimal elevation in high-sensitivity troponin at 15.8. No chest pain reported. Patient given 10 mg Cardizem with almost immediate conversion back to sinus rhythm. Monitored in the emergency department. She denied any chest pain, shortness of breath or other symptoms that would be concerning for acute cardiac ischemia and nothing in her repeat EKG was highly concerning for acute cardiac ischemia. At this time will discharge for continued follow-up with primary care as needed. Otherwise clear return precautions and follow-up instructions given prior to discharge. Departure - Departure Disposition: 01 Home, Self Care Clinical Impression: Atrial fibrillation with RVR, Elevated troponin Instructions: Atrial Fibrillation Dc Comments: Thank you for allowing us to care for you today at [facility]. I am glad that we were able to help you slow your heart rate. I like you to continue all of your current medications including your Cardizem and Eliquis. Please make a follow-up appointment with your primary care doctor and your candlemaker for reevaluation as needed. As we discussed in the emergency department your cardiac enzyme known as troponin was very minimally elevated in the emergency department this evening. This is likely due to your A. fib however it is important that if you begin to experience any recurrent symptoms such as racing heart, chest pain or shortness of breath that you return to the emergency department without delay. Again if it anytime you have any new or worsening symptoms please not hesitate to return.
[2021-07-11] MEDS: diltiaZEM INJ 5 MG/ML VIAL IVP STA (01:23)
[2021-07-11] MEDS: SODIUM CHLORIDE 0.9% 1,000 ML IV STA (01:24)
[2021-07-11 01:32] LABS: ALBUMIN 4.8 g/dL (3.2-5.5); ALBUMIN/GLOBULIN RATIO 1.3 (1.0-2.2); BILIRUBIN,TOTAL 0.8 mg/dL (0.2-1.0); CREATININE 0.8 mg/dL (0.4-1.0); POTASSIUM 3.8 mmol/L (3.5-5.0); TOTAL PROTEIN 8.4 g/dL (6.7-8.2)
--- NOTE | 2021-07-11 01:44 | XRAY Report ---
PROCEDURE: Chest 1 View X-Ray INDICATIONS: Chest pain TECHNIQUE: One view of the chest was acquired. COMPARISON: Chest x-ray 05/08/2021 FINDINGS: Surgical changes and devices: None. Lungs and pleura: No pleural effusions or pneumothorax. Lungs are clear. Lungs are hyperexpanded s uggestive COPD. Mediastinum: Mediastinal contours appear normal. Heart size is normal. Bones and chest wall: No suspicious bony lesions. Overlying soft tissues appear unremarkable. IMPRESSION: No acute pulmonary process. Reviewed by: Agatha Olivera MD on 07/11/2021 1:42 AM PDT Approved by: Agatha Olivera MD on 07/11/2021 1:42 AM PDT Station ID: [id number]
[2021-07-11 02:12] VITALS: BP 149/79
== END 2021-07-11 02:14 | disposition home or self-care (01) ==
LOC: ED 00:55
DX: I48.91 Unspecified atrial fibrillation (principal); R79.89 Other specified abnormal findings of blood chemistry; Z79.01 Long term (current) use of anticoagulants
CPT/HCPCS: 36415; 80053; 83690; 84484; 85025; 93005; 96374; 99283

== ENCOUNTER 2021-11-11 08:03 | Emergency (ER) | payer MEDICARE ==
--- NOTE | 2021-11-11 08:21 | ED Physician Documentation ---
PD HPI CHEST PAIN - Stated complaint Stated Complaint: HIGH HEART RATE - History obtained from History obtained from: Patient - History of Present Illness Timing - onset: Today, Last night Timing - onset during: Rest Timing - duration: Hours Timing - details: Abrupt onset, Still present (feeling of fast heart rate since overnight, feeling similar to prior atrial fib episodes.) Quality: No: Pressure, Tightness Associated symptoms: Palpitations. No: Shortness of air, Nausea Similar symptoms before: Diagnosis (paroxysmal atrial fib, converted with meds/slowing several times. Has seen Oil Developer with ECHO. On diltiazem 180daily now.) Review of Systems Constitutional: denies: Fever, Chills Nose: denies: Rhinorrhea / runny nose, Congestion Throat: denies: Sore throat Cardiac: reports: Palpitations. 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 HEENT: None Psych: None Musculoskeletal: Osteoarthritis, Osteoporosis, Chronic back pain Derm: None - Past Surgical History Past Surgical History: Yes HEENT: Cataracts - Present Medications Home Medications: Ambulatory Orders Medication Instructions Recorded Confirmed Apixaban [Eliquis] 5 mg PO BID 05/08/21 11/11/21 Potassium Chloride 20 meq PO RTDAILY #10 tablet 05/08/21 11/11/21 diltiaZEM CD [Cardizem Cd] 180 mg PO DAILY #30 cap 05/08/21 11/11/21 diltiaZEM CD [Cardizem Cd] 240 mg PO DAILY 30 Days #30 cap 11/11/21 - Allergies Allergies/Adverse Reactions: Allergies Allergy/AdvReac Type Severity Reaction Status Date / Time Penicillins Allergy Severe Rash Verified 11/11/21 08:36 amoxicillin Allergy Unknown Verified 11/11/21 08:36 - Social History Does the pt smoke?: No Smoking Status: Never smoker Does the pt drink ETOH?: Yes Does the pt have substance abuse?: No - Immunizations Immunizations are current?: Yes - POLST Patient has POLST: No POLST Status: Full Code PD ED PE NORMAL - Vitals Vital signs reviewed: Yes - General General: Alert and oriented X 3, No acute distress, Well developed/nourished - HEENT HEENT: Pharynx benign - Neck Neck: Supple, no meningeal sign, No adenopathy - Cardiac Cardiac: No murmur, No rub. No: RRR (irregular and rapid at 145-150) - Respiratory Respiratory: Clear bilaterally - Abdomen Abdomen: Soft, Non tender - Derm Derm: Normal color, Warm and dry - Extremities Extremities: No edema, No calf tenderness / cord - Neuro Neuro: Alert and oriented X 3, No motor deficit, Normal speech Results - Vitals Vitals: Vital Signs - 24 hr 11/11/21 11/11/21 08:19 11:30 Temperature 36.8 C 37.1 C Heart Rate 147 H 74 Respiratory 17 20 Rate Blood Pressure 125/104 H 135/93 H O2 Saturation 98 99 Oxygen O2 Source Room air - Labs Labs: Laboratory Tests 11/11/21 11/11/21 11/11/21 08:44 08:44 08:44 Sodium 134 L Potassium 3.6 Chloride 96 L Carbon Dioxide 27 Anion Gap 11.0 BUN 19 Creatinine 0.6 Estimated GFR (MDRD) 99 Glucose 97 Calcium 9.7 Magnesium 2.1 Total Bilirubin 1.1 H AST 20 ALT 29 Alkaline Phosphatase 137 H B-Natriuretic Peptide 236 H Total Protein 7.4 Albumin 4.1 Globulin 3.3 Albumin/Globulin Ratio 1.2 Lipase 36 TSH 1.60 PD MEDICAL DECISION MAKING - ED course Complexity details: re-evaluated patient (atrialfib has resolved into NSR aftter IV diltiazem and slowing of heart rate.), considered differential, d/w patient Departure - Departure Disposition: 01 Home, Self Care Clinical Impression: Paroxysmal atrial fibrillation with rapid ventricular response Condition: Stable Record reviewed to determine appropriate education?: Yes Instructions: ED Afib Follow-Up: MIR KENDALL ARNP [Primary Care Provider] - Wes Bajwa MD [Provider Admit Priv/Credential] - Prescriptions: diltiaZEM CD [Cardizem Cd] 240 mg PO DAILY 30 Days #30 cap Comments: Stay well-hydrated. Potassium rich foods. I would increase your diltiazem to 240 mg daily. Follow-up with your primary care/duplicator punch set up operator for further advice. I sent your prescription to [facility]. Discharge Date/Time: 11/11/21 11:32
[2021-11-11] MEDS ORDERED: SODIUM CHLORIDE 0.9% 1,000 ML IV STA (08:36)
[2021-11-11] MEDS ORDERED: diltiaZEM INJ 5 MG/ML VIAL IVP STA ×2 (08:36→09:43)
[2021-11-11 09:11] LABS: ALBUMIN 4.1 g/dL (3.2-5.5); ALBUMIN/GLOBULIN RATIO 1.2 (1.0-2.2); BILIRUBIN,TOTAL 1.1 mg/dL (0.2-1.0); CALCIUM 9.7 mg/dL (8.5-10.3); CREATININE 0.6 mg/dL (0.4-1.0); MAGNESIUM 2.1 mg/dL (1.7-2.8); POTASSIUM 3.6 mmol/L (3.5-5.0); TOTAL PROTEIN 7.4 g/dL (6.7-8.2)
[2021-11-11] MEDS ORDERED: POTASSIUM CHLOR 10 MEQ/100 ML 10 MEQ/100 ML BAG IV STA (09:41)
[2021-11-11 11:32] VITALS: BP 135/93
== END 2021-11-11 11:32 | disposition home or self-care (01) ==
LOC: ED 08:03
DX: I48.0 Paroxysmal atrial fibrillation (principal); Z79.01 Long term (current) use of anticoagulants
CPT/HCPCS: 36415; 80053; 83690; 83735; 83880; 84443; 93005; 96361; 96374; 99283

== ENCOUNTER 2021-12-25 10:16 | Emergency (ER) | payer MEDICARE ==
--- NOTE | 2021-12-25 10:41 | ED Physician Documentation ---
PD HPI DYSPNEA - Stated complaint Stated Complaint: IRREGULAR HR/SOA - Chief complaint Chief Complaint: Neuro - History obtained from History obtained from: Patient - History of Present Illness Timing - onset: How many hours ago (few), Today Timing - onset during: Rest Timing - duration: Hours (few) Timing - details: Abrupt onset, Still present Inciting event(s): Other (she is 3 days post op right hip replacement with anemia. Has been hydrating well. Back on DOAC the day after surgery. Has taken her diltiazem regularly.). No: Out of meds, Immobilization/travel Improved by: No: Rest Worsened by: Exertion Associated symptoms: No: Fever, Cough, Wheezing, Bilateral edema Similar symptoms before: Diagnosis (parosysmal atrial fib with RVR. This is her 6th episode in few months. She states had onset/episode after her hip surgeyr and the anesthiologist gave some med IV and the afib converted back to sinus.) Recently seen: Surgery (3 days ago hip surgery reeplacement.) Review of Systems Constitutional: denies: Fever, Chills Nose: denies: Rhinorrhea / runny nose, Congestion Throat: denies: Sore throat Cardiac: denies: Chest pain / pressure, Palpitations Respiratory: reports: Dyspnea. denies: Cough, Wheezing GI: denies: Abdominal Pain, Nausea, Vomiting, Diarrhea PD PAST MEDICAL HISTORY - Past Medical History Cardiovascular: Atrial fibrillation Respiratory: None Neuro: None Endocrine/Autoimmune: None GI: None SAMPLE MAKER: Other : None HEENT: None Psych: None Musculoskeletal: Osteoarthritis, Osteoporosis, Chronic back pain Derm: None - Past Surgical History Past Surgical History: Yes HEENT: Cataracts - Present Medications Home Medications: Ambulatory Orders Medication Instructions Recorded Confirmed Apixaban [Eliquis] 5 mg PO BID 05/08/21 11/11/21 Potassium Chloride 20 meq PO RTDAILY #10 tablet 05/08/21 11/11/21 diltiaZEM CD [Cardizem Cd] 180 mg PO DAILY #30 cap 05/08/21 11/11/21 diltiaZEM CD [Cardizem Cd] 240 mg PO DAILY 30 Days #30 cap 11/11/21 - Allergies Allergies/Adverse Reactions: Allergies Allergy/AdvReac Type Severity Reaction Status Date / Time Penicillins Allergy Severe Rash Verified 12/25/21 10:29 amoxicillin Allergy Unknown Verified 12/25/21 10:29 - Social History Does the pt smoke?: No Smoking Status: Never smoker Does the pt drink ETOH?: Yes Does the pt have substance abuse?: No - Immunizations Immunizations are current?: Yes - POLST Patient has POLST: No POLST Status: Full Code PD ED PE NORMAL - Vitals Vital signs reviewed: Yes (HR 150s.) - General General: Alert and oriented X 3, No acute distress, Well developed/nourished - HEENT HEENT: Pharynx benign. No: Moist mucous membranes - Neck Neck: Supple, no meningeal sign, No adenopathy - Cardiac Cardiac: No murmur. No: RRR - Respiratory Respiratory: Clear bilaterally - Abdomen Abdomen: Soft, Non tender - Back Back: No CVA TTP - Derm Derm: Normal color, No rash, Other (right anterior hip with dressing in place. no surrounding redness, and dressing dry/ no drainage. ) Results - Vitals Vitals: Vital Signs - 24 hr 12/25/21 12/25/21 12/25/21 10:20 11:30 13:00 Temperature 36.4 C L Heart Rate 155 H 113 H 80 Respiratory 16 18 16 Rate Blood Pressure 108/87 H 109/83 H 140/90 H O2 Saturation 99 98 Oxygen O2 Source Room air - EKG (time done) 10:15 Rate: Rate (enter#) (155) Rhythm: Atrial fibrillation Ischemia: Non specific changes Compare to prior EKG: Unchanged from prior EKG - Labs Labs: Laboratory Tests 12/25/21 12/25/21 12/25/21 10:43 10:43 10:43 WBC 8.8 RBC 2.49 L Hgb 7.7 L Hct 22.0 L MCV 88.4 MCH 30.9 MCHC 35.0 RDW 12.1 Plt Count 420 MPV 9.1 Neut # (Auto) 7.3 H Lymph # (Auto) 0.7 L [place] # (Auto) 0.7 Eos # (Auto) 0.0 Baso # (Auto) 0.0 Absolute Nucleated RBC 0.00 Nucleated RBC % 0.0 Sodium 132 L Potassium 3.9 Chloride 94 L Carbon Dioxide 27 Anion Gap 11.0 BUN 11 Creatinine 0.7 Estimated GFR (MDRD) 82 L Glucose 127 H Calcium 9.0 Magnesium 1.9 Total Bilirubin 0.7 AST 25 ALT 20 Alkaline Phosphatase 118 Total Protein 6.9 Albumin 3.1 L Globulin 3.8 Albumin/Globulin Ratio 0.8 L Lipase 26 Blood Type Blood Type Recheck A NEGATIVE Antibody Screen 12/25/21 11:06 WBC RBC Hgb Hct MCV MCH MCHC RDW Plt Count MPV Neut # (Auto) Lymph # (Auto) [place] # (Auto) Eos # (Auto) Baso # (Auto) Absolute Nucleated RBC Nucleated RBC % Sodium Potassium Chloride Carbon Dioxide Anion Gap BUN Creatinine Estimated GFR (MDRD) Glucose Calcium Magnesium Total Bilirubin AST ALT Alkaline Phosphatase Total Protein Albumin Globulin Albumin/Globulin Ratio Lipase Blood Type A NEGATIVE Blood Type Recheck Antibody Screen NEGATIVE PD MEDICAL DECISION MAKING - ED course Complexity details: reviewed old records (she has had episodic atrial fib with RVR. ), reviewed results (anemic but not low enough for transfusion. She is in rapid atrial fib onset this morning. Given 2 doses of diltiazem with slowing to 110 range but stayed fib. Given amiodarone and just part way through the infusion, she converted to NSR. Infusion stopped and pt feeling okay. ), re- evaluated patient (The patient had slowing of her heart rate with doses of diltiazem IV twice. However remained in A. fib and heart rate was starting to creep back up. Started on amiodarone 150 mg infusion over 20 minutes and within about half of the dosing converted to sinus.), considered differential (paroxysmal atrial fib. Recent hip surgery with reported anemia and Hgb 8. Today is 7.7. Not low enough for transfusion.), d/w patient, other (For now, to continue the diltiazem. She is going to call her outreach librarian. If recurring episodes, they had discussed other meds and eval potential ablation. Defer to patient to contact cardiology office. ) - Critical Care Time(min): 30 Time Includes: Direct patient care, Reassess patient, Document care (ss), Medical consult Procedures excluded from critical care time: EKG Departure - Departure Disposition: 01 Home, Self Care Clinical Impression: Paroxysmal atrial fibrillation with rapid ventricular response, Anemia Status post hip replacement Qualifiers: Laterality: right Qualified Code(s): Z96.641 - Presence of right artificial hip joint Condition: Stable Record reviewed to determine appropriate education?: Yes Instructions: ED Afib Comments: Continue with your current diltiazem dose. Contact your outreach librarian office tomorrow to discuss follow-up appointment and any other changes they may want. Return to the ER as needed. Continue with the postoperative care for your hip as directed by orthopedist. Continue on your blood thinner. Your blood count is low but not low enough to trigger the need for transfusion. I presume it will improve on its own with adequate nutrition. Consider her mild iron supplements or multivitamin iwth iron. Discharge Date/Time: 12/25/21 13:40
[2021-12-25] MEDS ORDERED: SODIUM CHLORIDE 0.9% 1,000 ML IV STA (10:58)
[2021-12-25] MEDS ORDERED: diltiaZEM INJ 5 MG/ML VIAL IVP STA ×2 (10:58→11:49)
[2021-12-25 11:06] LABS: BASOPHILS % (AUTO) 0.3 %; EOSINOPHILS % (AUTO) 0.3 %; HGB - HEMOGLOBIN 7.7 g/dL (12.0-16.0); LYMPHOCYTES # (AUTO) 0.7 10^3/uL (1.5-3.5); LYMPHOCYTES % (AUTO) 8.2 %; MEAN CORPUSCULAR HEMOGLOBIN 30.9 pg (27.0-31.0); MEAN CORPUSCULAR VOLUME 88.4 fL (81.0-99.0); MEAN PLATELET VOLUME 9.1 fL (7.9-10.8); MONOCYTES # (AUTO) 0.7 10^3/uL (0.0-1.0); MONOCYTES % (AUTO) 7.8 %; NEUTROPHILS # (AUTO) 7.3 10^3/uL (1.5-6.6); NEUTROPHILS % (AUTO) 83.2 %; PLT - PLATELET COUNT 420 10^3/uL (130-450); RED BLOOD COUNT 2.49 10^6/uL (4.20-5.40); RED CELL DISTRIBUTION WIDTH 12.1 % (12.0-15.0); WHITE BLOOD COUNT 8.8 x10^3/uL (4.8-10.8)
[2021-12-25 11:20] LABS: ALBUMIN 3.1 g/dL (3.2-5.5); ALBUMIN/GLOBULIN RATIO 0.8 (1.0-2.2); BILIRUBIN,TOTAL 0.7 mg/dL (0.2-1.0); CREATININE 0.7 mg/dL (0.4-1.0); MAGNESIUM 1.9 mg/dL (1.7-2.8); POTASSIUM 3.9 mmol/L (3.5-5.0); TOTAL PROTEIN 6.9 g/dL (6.7-8.2)
[2021-12-25] MEDS ORDERED: POTASSIUM CHLORIDE 20 MEQ TABLET PO ONE (11:49)
[2021-12-25] MEDS ORDERED: AMIODARONE 150 MG/100 ML 100 ML IV ONE (12:15)
[2021-12-25 13:20] VITALS: BP 140/90
== END 2021-12-25 13:40 | disposition home or self-care (01) ==
LOC: ED 10:16
DX: I48.0 Paroxysmal atrial fibrillation (principal); Z79.01 Long term (current) use of anticoagulants; D64.9 Anemia, unspecified; Z96.641 Presence of right artificial hip joint
CPT/HCPCS: 36415; 80053; 83690; 83735; 85025; 86850; 86900; 86901; 93005; 96374; 96375; 96376; 99291; A9270; J0282

== ENCOUNTER 2022-05-09 15:10 | Outpatient (CLI) | payer MEDICARE ==
--- NOTE | 2022-05-09 16:33 | DEXA Report ---
PROCEDURE: Dexa Spine and/or Hip INDICATIONS: OSTEOPOROSIS TECHNIQUE: Dual energy x-ray absorptiometry (DXA) was performed on a Bolster System. Regions measur ed are the AP Spine, femoral neck, and if needed forearm. COMPARISON: None. FINDINGS: Lumbar Spine: Bone Mineral Density 0.844 g/cm/cm,T score -2.8, osteoporosis Left Femoral Neck: Bone Mineral Density 0.687 g/cm/cm, T score -2.5, osteoporosis Left Hip: Bone Mineral Density 0.698 g/cm/cm,T score -2.5, osteoporosis (T score greater or equal to -1.0: NORMAL) (T score from -1.1 to -2.4: OSTEOPENIA) (T score less than or equal to -2.5 to: OSTEOPOROSIS) Impression: Osteoporosis. Patients with diagnosis of osteoporosis or osteopenia should have regular bone mineral density assess ment. For those eligible for Medicare, routine testing is allowed once every 2 years. Testing frequ ency can be increased for patients who have rapidly progressing disease or for those who are receivin g medical therapy to restore bone mass. Reviewed by: Liz Chavarria MD, PhD on 05/09/2022 4:32 PM PST Approved by: Liz Chavarria MD, PhD on 05/09/2022 4:32 PM PST Station ID: [id number]
== END 2022-05-09 15:11 | disposition home or self-care (01) ==
LOC: DI 15:10
PROVIDERS: ATTEND Nurse Practitioner Family
DX: M81.0 Age-related osteoporosis without current pathological fracture (principal)

== ENCOUNTER 2023-07-02 09:45 | Outpatient (CLI) | payer MEDICARE ==
--- NOTE | 2023-07-03 10:32 | Mammography Report ---
BILATERAL DIGITAL SCREENING MAMMOGRAM 3D/2D WITH EXAGGERATED CC: 07/02/2023 CLINICAL: Routine screening. Family history of breast cancer. Comparison is made to exams dated: 11/29/2021 mammogram, 07/07/2020 mammogram, 05/31/2020 mammogram, mammogram, and 05/12/2016 mammogram - [facility]. Both breasts are heterogeneously dense, which may obscure small masses (category c / 51-75% glandular tissue). No significant masses, calcifications, or other findings are seen in either breast. There has been no significant interval change. IMPRESSION: NEGATIVE There is no mammographic evidence of malignancy. A 1 year screening mammogram is recommended. Based on the Tyrer Cuzick model (a risk assessment model) the patient's lifetime risk is 10.8% and he r 10 year risk is 8.2%. According to the ACR, ACS, and NCCN guidelines, an annual breast MRI exam amador ng with mammogram is recommended if the patient's lifetime risk is 20% or greater. This exam was interpreted at Station ID: [id number]. NOTE: For mammograms, a report in lay terms will be sent to the patient. Approximately 15% of breast malignancies will not be visualized mammographically. In the management of a palpable breast mass, a negative mammogram must not discourage biopsy of a clinically suspicious lesion. Electronically Signed By: Mateo hinojosa/dakota:07/02/2023 18:43:38 letter sent: No_Letter ACR BI-RADS Category 1: Negative [id number] PARENCHYMAL PATTERN: (D) - The breast(s) demonstrate(s) heterogeneously dense fibroglandular kaveh laura. BI-RADS CATEGORY: (1) - 1 RECOMMENDATION: (ANNUAL) - Recommend routine annual screening mammography. [id number] 1 year screening LATERALITY: (B)
== END 2023-07-02 09:46 | disposition home or self-care (01) ==
LOC: DI.S 09:45
PROVIDERS: ATTEND Registered Nurse
DX: Z12.31 Encounter for screening mammogram for malignant neoplasm of breast (principal); Z80.3 Family history of malignant neoplasm of breast; R92.333 Mammographic heterogeneous density, bilateral breasts